=== PATIENT | female | born 1975 | race African-American/Black ===

== ENCOUNTER 2017-06-17 09:12 | Emergency (ER) | payer MEDICARE, MEDICAID ==
[~2017-06-17] VITALS: Ht 170.2 cm; Wt 63.5 kg
[~2017-06-17 09:12] MED LIST: AMITRIPTYLINE H25 MG ORAL; AUGMENTIN 875-1 EAC1 ORAL; BACTRIM DS TAB1 EAC1 ORAL; CIPROFLOXACIN500 M2 ORAL; COMPAZINE10 MG ORAL; DIFLUCAN100 MG ORAL; IBUPROFEN600 MG ORAL; KEFLEX500 MG ORAL; NORCO 5-325 TA1 EACH ORAL; NORCO 5-325 TA1 EACH PO; PERCOCET 5-3251 EACH PO; PHENAZOPYRIDIN100 MG ORAL; RELPAX40 MG PO; VICODIN 5-5001 EACH ORAL
[2017-06-17 09:21] VITALS: BP 106/65
--- NOTE | 2017-06-17 09:31 | Emergency Room Report ---
History of Present Illness General Chief Complaint: Upper Extremity Injury Source: Patient Present Illness HPI 41-year-old female, presenting with right wrist pain. Patient states that 2 days ago patient fell, does not know exactly how she fell. No head trauma or LOC. No complaining of right wrist pain worse with movement. No other complaints Allergies: Coded Allergies: Whole Milk (Verified Allergy, 10/23/12) Patient History Past Medical History: see triage record Past Surgical History: none Pertinent Family History: none Last Menstrual Period: Depo shot Reviewed Nursing Documentation: PMH: Agreed, PSxH: Agreed Nursing Documentation-PMH Past Medical History: No History, Except For Review of Systems All Other Systems: negative except mentioned in HPI Physical Exam Vital Signs Date Time Temp Pulse Resp B/P (MAP) Pulse Ox O2 Delivery O2 Flow Rate FiO2 06/17/17 09:21 98.2 79 16 106/65 97 Room Air Sp02 EP Interpretation: reviewed, normal General Appearance: normal inspection, well appearing, no apparent distress, alert, GCS 15, non-toxic Head: normocephalic, atraumatic Eyes: bilateral eye normal inspection, bilateral eye PERRL, bilateral eye EOMI ENT: normal ENT inspection, normal pharynx, normal voice, moist mucus membranes Neck: normal inspection, full range of motion, supple Respiratory: normal inspection, lungs clear, normal breath sounds, no respiratory distress, no retraction, no wheezing, speaking full sentences, chest symmetrical Cardiovascular #1: normal inspection, regular rate, rhythm, no edema, normal capillary refill Cardiovascular #2: 2+ radial (R), 2+ radial (L) Gastrointestinal: normal inspection, non tender, soft, non-distended, no guarding Musculoskeletal: other - Right wrist tenderness in the lateral/radial aspect, mild edema, limited range of motion secondary to pain, neurovascularly intact, no snuffbox tenderness Neurologic: normal inspection, alert, oriented x3, responsive, motor strength/ tone normal, sensory intact, normal gait, speech normal Psychiatric: normal inspection, judgement/insight normal, memory normal Skin: normal inspection, normal color, no rash, warm/dry, well hydrated, normal turgor Medical Decision Making Diagnostic Impression: Primary Impression: Wrist contusion ER Course 41-year-old female with right wrist pain DDX: Contusion vs. fracture Plan: Pain control with motrin XR ER course: Patient reports improvement of pain with motrin. XR reveals soft tissue swelling without fracture Disposition: Patient is to be discharged home with a prescription of motrin. Patient educated to rest, ice, and elevate extremity and to avoid vigorous activity. Strict precautions discussed with patient on when to return to the emergency room including increased redness or swelling joints, increased pain/swelling of extremity, fever or chills, which could indicate severe illness. Patient is to follow up with their primary care doctor within 5 days. Patient also instructed to follow up with an orthopedic doctor if continuing to have mild/moderate pain as he may need further outpatient imaging. Patient agrees with plan. Please note that this Emergency Department Report was dictated using [employer] technology software, occasionally this can lead to erroneous entry secondary to interpretation by the dictation equipment. Xray ordered: Right wrist 3 view Indication: Pain EP Interpretation: Yes Interpretation: No dislocation, no soft tissue swelling, no fractures Impression: No acute disease Electronically signed by Kulwant Nogueira MD Last Vital Signs Date Time Temp Pulse Resp B/P (MAP) Pulse Ox O2 Delivery O2 Flow Rate FiO2 06/17/17 09:21 98.2 79 16 106/65 97 Room Air Disposition: HOME, SELF-CARE Condition: Improved Patient Instructions: CONTUSION, Upper Extremity Kulwant Nogueira M.D. Jun 17, 2017 09:31
[2017-06-17] MEDS ORDERED: IBUPROFEN600 MG ORAL (09:34)
[2017-06-17] MEDS ORDERED: NORCO 10-325 T1 EACH ORAL (09:34)
--- NOTE | 2017-06-17 09:48 | Diagnostic Imaging Report ---
Indication: Pain Findings: 3 views of the right wrist were obtained. No acute fractures, malalignment, erosions or periostitis are identified. Soft tissues are unremarkable. Impression: No acute findings.
[2017-06-17 10:46] VITALS: BP 106/65
== END 2017-06-17 10:47 | disposition home or self-care (01) ==
LOC: EMR 09:48
DX: S60.211A Contusion of right wrist, initial encounter (principal); W19.XXXA Unspecified fall, initial encounter; Y92.9 Unspecified place or not applicable
CPT/HCPCS: 99283

== ENCOUNTER 2018-11-24 11:27 | Emergency (ER) | payer MEDICAID, MEDICARE ==
[~2018-11-24] VITALS: Ht 167.6 cm; Wt 63.5 kg
[~2018-11-24 11:27] MED LIST changes: +NORCO 10-325 T1 EACH ORAL
[2018-11-24 11:30] VITALS: BP 127/84
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
--- NOTE | 2018-11-24 12:18 | NUR ---
ED Nurse Note: X-ray tech at bedside.
--- NOTE | 2018-11-24 12:43 | NUR ---
ED Nurse Note: Steri-strips and finger splint applied to right index finger as ordered. Patient tolerated the procedure without difficulty.
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
--- NOTE | 2018-11-24 13:47 | Diagnostic Imaging Report ---
Indication: Right hand pain Findings: 3 views of the right hand were obtained. Normal bony mineralization and alignment are demonstrated. No acute fractures, erosions, or periosteal reaction are seen. Soft tissues are unremarkable. Impression: No acute findings.
== END 2018-11-24 12:45 | disposition home or self-care (01) ==
LOC: EMR 11:57
DX: S61.200A Unspecified open wound of right index finger without damage to nail, initial encounter (principal); W23.0XXA Caught, crushed, jammed, or pinched between moving objects, initial encounter; Y92.9 Unspecified place or not applicable
CPT/HCPCS: 29130; 99283

== ENCOUNTER 2020-01-17 09:50 | Emergency (ER) | payer MEDICAID ==
[~2020-01-17] VITALS: Ht 167.6 cm; Wt 64.4 kg
[2020-01-17 10:05] VITALS: BP 136/84
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
[2020-01-17] MEDS ORDERED: Tetanus/Diptheria/Pertussis IM ONE (10:15)
--- NOTE | 2020-01-17 10:50 | NUR ---
ED Nurse Note: patient was taken to CT via wheelchair
--- NOTE | 2020-01-17 11:00 | NUR ---
ED Nurse Note: patient is back from CT, NAD noted
[2020-01-17] MEDS ORDERED: IBUPROFEN600 M1 ORAL (11:58)
[2020-01-17] MEDS ORDERED: LIDOCAINE700 M1 TP (11:58)
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
[2020-01-17 12:13] VITALS: BP 136/84
--- NOTE | 2020-01-17 12:14 | NUR ---
ED Nurse Note: Pt cleared by health care Provider for discharge. DC instructions/prescription was given and explained to pt and verbalized understanding of teachings. All medical deviecs such as ID band removed. Pt is AAO x4, ambulatory and left with all personal belongings.
== END 2020-01-17 12:14 | disposition home or self-care (01) ==
LOC: EMR 10:16
DX: S20.219A Contusion of unspecified front wall of thorax, initial encounter (principal); E04.1 Nontoxic single thyroid nodule; K76.89 Other specified diseases of liver; S50.312A Abrasion of left elbow, initial encounter; Y09 Assault by unspecified means; N93.9 Abnormal uterine and vaginal bleeding, unspecified; N20.0 Calculus of kidney; Z23 Encounter for immunization
CPT/HCPCS: 71250; 90471; 90715; Z7502; 99284

== ENCOUNTER 2020-03-03 21:17 | Emergency (ER) | payer MEDICAID ==
[~2020-03-03] VITALS: Ht 167.6 cm; Wt 64.4 kg
[~2020-03-03 21:17] MED LIST changes: +IBUPROFEN600 M1 ORAL; +LIDOCAINE700 M1 TP
[2020-03-03 21:30] VITALS: BP 127/90
[2020-03-03 22:06] LABS: BASOPHILS % (AUTO) 1.5 % (0.0-2.0); EOSINOPHILS % (AUTO) 2.2 % (0.0-3.0); HEMATOCRIT 39.8 % (37.0-47.0); HEMOGLOBIN 12.4 G/DL (12.0-16.0); LYMPHOCYTES % (AUTO) 39.7 % (20.0-45.0); MEAN CORPUSCULAR VOLUME 85 FL (80-99); MONOCYTES % (AUTO) 6.9 % (1.0-10.0); NEUTROPHILS % (AUTO) 49.7 % (45.0-75.0); PLATELET COUNT 278 K/UL (150-450); RED BLOOD COUNT 4.66 M/UL (4.20-5.40); RED CELL DISTRIBUTION WIDTH 12.8 % (11.6-14.8); WHITE BLOOD COUNT 7.5 K/UL (4.8-10.8)
[2020-03-03 22:07] LABS: APPEARANCE,URINE SLIGHTLY CLOUDY; BILIRUBIN, URINE NEGATIVE (NEGATIVE); GLUCOSE, URINE (UA) NEGATIVE (NEGATIVE); KETONES,URINE NEGATIVE (NEGATIVE); LEUKOCYTE ESTERASE ,URINE NEGATIVE (NEGATIVE); NITRITE,URINE NEGATIVE (NEGATIVE); PH,URINE 6.5 (4.5-8.0); PROTEIN,URINE NEGATIVE (NEGATIVE); UROBILINOGEN,URINE 1 MG/DL (0.0-1.0)
--- NOTE | 2020-03-03 22:09 | Emergency Room Report ---
History of Present Illness General Chief Complaint: Female Urogenital Problems Source: Patient Present Illness HPI 44-year-old female presenting with multiple complaints. She has been taking the Depakote shot but has been concerned about heavy vaginal bleeding with clots x2 days. Cannot recall how many pads she has soaked in the past 24 hrs. She states that her mother has fibroids, however she has not been diagnosed. She is concerned that she may have been now too. Denies dysuria, melena, hematochezia, flank pain, abdominal pain, or pelvic pain. Also complains of right calf pain and swelling. Denies chest pain, shortness breath, hemoptysis, history of blood clots, nausea, vomiting, shortness of breath or other symptoms. The patient's symptoms were gradual onset, severity was moderate, duration since 2 days. Quality: aching Past medical history: anemia Past surgical history: Denies Smoking: Denies Alcohol use: Denies Drug use: Denies Review of systems: CONST: No fevers or chills, No night sweats PULMONARY: No productive cough, No shortness of breath CARDIAC: No chest pain, No palpitations GI: No vomiting, No diarrhea , No melena_or_BRBPR : No dysuria, No hematuria, No discharge NEURO: No new_focal_weakness_or_numbness, No confusion, No vision changes 14 point Review of Systems is otherwise negative except per HPI Physical Exam: GENERAL: Awake_alert_ nontoxic, no acute distress Spo2 96% on RA -normal EYES: Extraocular muscles are intact. Conjunctivae clear. Lids without swelling ENT: External nose and ear normal_in_appearance. Oropharynx clear. Head_atraumatic, Moist_oral_mucosa NECK: No JVD. No meningismus. No thyromegaly. Supple. Trachea midline RESP: Normal respiratory effort. Symmetric rise. No stridor. Clear_to_auscultation_No_rales_No_wheezes CARDIAC: Regular rate and regular rhytm. No_significant pedal edema. ABDOMEN: Soft. Nondistended. Nontender_No_rebound_or_guarding. no CVA tendern ess to palpation MSK: Normal muscle tone, without rigidity. Extremities without asymmetric deformity or swelling. R calf homans sign. SKIN: Warm and dry. No visible cyanosis or pallor NEUROLOGIC: Alert, oriented x3. Motor_and_sensation_grossly_intact. No truncal ataxia. Gait_normal Psych: Normal mood and affect, normal judgment and insight - COORDINATION OF CARE Case was discussed with: Patient , Patient's Family Any labs and imaging that were ordered were interpreted as part of the medical decision making: Medical Decision Making/Plan: Differential diagnosis includes DVT, lymphedema, renal failure, congestive heart failure, arthritis, venous stasis Distally the patient has capillary refill <2 seconds and strong pulses. There is no pallor or pain out of proportion to exam. There is mild swelling with negative Homans sign The patient has no significant DVT risk factors or known hypercoagulable disorder. No evidence of arterial occlusion. The associated joints have full range of motion without any significant pain or restriction in mobility. There is no crepitus or pain out of proportion to exam and the patient is afebrile and nontoxic. There is no overlying significant redness, induration, tenderness, pus, or evidence of drainable fluid collection. No evidence of septic arthritis, necrotizing fasciitis, or soft tissue infection such as abscess or cellulitis. No trauma, no injury , compartments are soft, the patient is able to bear weight and has no neurologic deficits. No evidence of fracture, dislocation or compartment syndrome at this time. Care to be signed out Dr Story pending pelvic US, RLE US, labs and urine Allergies: Coded Allergies: Whole Milk (Verified Allergy, 10/23/12) COVID-19 Screening Contact w/high risk pt: No Experienced COVID-19 symptoms?: No COVID-19 Testing performed PROJECT DESIGNER: No Patient History Last Menstrual Period: current Physical Exam Vital Signs Date Time Temp Pulse Resp B/P (MAP) Pulse Ox O2 Delivery O2 Flow Rate FiO2 03/03/20 21:20 98.2 90 18 127/90 (102) 96 Room Air Sp02 EP Interpretation: reviewed, normal Medical Decision Making Diagnostic Impression: Primary Impression: Vaginal bleeding Additional Impressions: Abdominal cramps Right calf pain Last Vital Signs Date Time Temp Pulse Resp B/P (MAP) Pulse Ox O2 Delivery O2 Flow Rate FiO2 03/03/20 21:30 98.2 90 18 127/90 96 Room Air Admit Decision Time: 22:00 Condition: Stable - Care signed out to Dr Stroy Referrals: NON PHYSICIAN (PCP) Aleah Dunne D.O. 4, 2020 22:09
[2020-03-03 22:10] LABS: COLOR,URINE YELLOW
[2020-03-03 22:12] LABS: INR 0.9 (0.9-1.1)
[2020-03-03 22:41] LABS: ALANINE AMINOTRANSFERASE 25 U/L (12-78); ALBUMIN 3.4 G/DL (3.4-5.0); ALKALINE PHOSPHATASE 59 U/L (46-116); ASPARTATE AMINO TRANSFERASE 14 U/L (15-37); BILIRUBIN,TOTAL 0.3 MG/DL (0.2-1.0); BLOOD UREA NITROGEN 12 mg/dL (7-18); CALCIUM 8.7 MG/DL (8.5-10.1); CARBON DIOXIDE 26 MMOL/L (21-32); CREATININE 0.9 MG/DL (0.55-1.30)
[2020-03-03 22:49] LABS: CHLORIDE 109 MMOL/L (98-107); POTASSIUM 3.6 MMOL/L (3.5-5.1); SODIUM 141 MMOL/L (136-145)
--- NOTE | 2020-03-03 23:45 | Diagnostic Imaging Report ---
EXAM: US Abdomen Complete CLINICAL HISTORY: ABD PAIN TECHNIQUE: Real-time ultrasound of the abdomen with image documentation. COMPARISON: No relevant prior studies available. FINDINGS: Liver: Unremarkable. No mass. No intrahepatic bile duct dilation. Gallbladder: The gallbladder is contracted. No radiopaque stones. Common bile duct: Unremarkable as visualized. No stones. No dilation. Pancreas: Unremarkable as visualized. Kidneys: The right kidney measures 11.8 cm. No nephrolithiasis, hydronephrosis, or suspicious lesion. Hypoechoic lobular lesion within the lower pole measuring 1.2 x 0.8 cm favored to represent cyst. The left kidney measures 8.5 cm in length. No nephrolithiasis, hydronephrosis, or suspicious mass. Spleen: Unremarkable. No splenomegaly. Aorta: Unremarkable. No aneurysm. Inferior vena cava: Unremarkable. Pleural space: Bilateral pleural effusions present. IMPRESSION: 1. No sonographically evident abnormality within the abdomen. 2. Bilateral pleural effusions present.
--- NOTE | 2020-03-04 00:29 | Diagnostic Imaging Report ---
EXAM: US Pelvis Transabdominal, Complete CLINICAL HISTORY: PAIN TECHNIQUE: Real-time complete transabdominal pelvic ultrasound with image documentation. COMPARISON: No relevant prior studies available. FINDINGS: Uterus/cervix: The uterus measures 8.6 x 6.1 x 4.8 cm. Endometrial complex measures 1.0 cm. Normal appearance of the uterus and endometrial complex. No myometrial mass. Right ovary: Right ovary measures 3.1 x 1.6 x 1.3 cm. No suspicious lesion. Blood flow present. Left ovary: The left ovary measures 3.7 x 1.9 x 1.9 cm. No suspicious lesion. Blood flow present. Free fluid: Trace physiologic free fluid within the cul-de-sac. IMPRESSION: 1. No acute abnormality. 2. Trace physiologic free fluid within the cul-de-sac.
--- NOTE | 2020-03-04 00:38 | Diagnostic Imaging Report ---
EXAM: US Duplex Bilateral Lower Extremities Veins CLINICAL HISTORY: DVT TECHNIQUE: Real-time duplex ultrasound scan of the bilateral lower extremity veins integrating B-mode two-dimensional vascular structure, Doppler spectral analysis, color flow Doppler imaging and compression. COMPARISON: No relevant prior studies available. FINDINGS: Right deep veins: Unremarkable. No DVT in the right common femoral, femoral, proximal deep femoral or popliteal veins. The veins demonstrate normal color flow, are normally compressible, with normal phasic flow and/or augmentation response. Right superficial veins: Unremarkable. Left deep veins: Unremarkable. No DVT in the left common femoral, femoral, proximal deep femoral or popliteal veins. The veins demonstrate normal color flow, are normally compressible, with normal phasic flow and/or augmentation response. Left superficial veins: Unremarkable. Soft tissues: No acute findings. IMPRESSION: No DVT within the bilateral lower extremity.
[2020-03-04 00:50] VITALS: BP 125/85
--- NOTE | 2020-03-04 01:49 | Emergency Room Report ---
Physical Exam Vital Signs Date Time Temp Pulse Resp B/P (MAP) Pulse Ox O2 Delivery O2 Flow Rate FiO2 03/03/20 21:20 98.2 90 18 127/90 (102) 96 Room Air Medical Decision Making Diagnostic Impression: Primary Impression: Vaginal bleeding Additional Impressions: Abdominal cramps Right calf pain ER Course Hospital Course 44 yo F presents with vaginal bleeding, R calf cramping. Patient initially seen and evaluated by Dr Dunne; please see her note for full history and physical Clinical course Labs - no leukocytosis, Hb/Hct stable, electrolytes ok, UA unremarkable pelvic US - no acute process venous duplex no evidence of DVT I discussed findings with patient. Reassurance given. Given copies of ultrasound reports. States she will follow-up with her [employer]. Will consider discontinuing her Depot injections. I feel this is a highly complex case requiring extensive working including EKG/Rhythm strip, Xray/CT/US, Blood/urine lab work, repeat exams while in ED, and administration of strong opiates/narcotics for pain control, admission to hospital or close patient follow up. Diagnosis - right calf pain, vaginal bleeding Stable and discharged to home. Followup with PMD. Return to ED if symptoms recur or worsen Laboratory Tests Test 03/03/20 21:46 White Blood Count 7.5 K/UL (4.8-10.8) Red Blood Count 4.66 M/UL (4.20-5.40) Hemoglobin 12.4 G/DL (12.0-16.0) Hematocrit 39.8 % (37.0-47.0) Mean Corpuscular Volume 85 FL (80-99) Mean Corpuscular Hemoglobin 26.5 PG (27.0-31.0) L Mean Corpuscular Hemoglobin Concent 31.1 G/DL (32.0-36.0) L Red Cell Distribution Width 12.8 % (11.6-14.8) Platelet Count 278 K/UL (150-450) Mean Platelet Volume 6.3 FL (6.5-10.1) L Neutrophils (%) (Auto) 49.7 % (45.0-75.0) Lymphocytes (%) (Auto) 39.7 % (20.0-45.0) Monocytes (%) (Auto) 6.9 % (1.0-10.0) Eosinophils (%) (Auto) 2.2 % (0.0-3.0) Basophils (%) (Auto) 1.5 % (0.0-2.0) Prothrombin Time 9.9 SEC (9.30-11.50) Prothromb Time International Ratio 0.9 (0.9-1.1) Activated Partial Thromboplast Time 24 SEC (23-33) Urine Color Yellow Urine Appearance Slightly cloudy Urine pH 6.5 (4.5-8.0) Urine Specific [place] 1.015 (1.005-1.035) Urine Protein Negative (NEGATIVE) Urine Glucose (UA) Negative (NEGATIVE) Urine Ketones Negative (NEGATIVE) Urine Blood 4+ (NEGATIVE) H Urine Nitrite Negative (NEGATIVE) Urine Bilirubin Negative (NEGATIVE) Urine Urobilinogen 1 MG/DL (0.0-1.0) H Urine Leukocyte Esterase Negative (NEGATIVE) Urine RBC 2-4 /HPF (0 - 2) H Urine WBC 0-2 /HPF (0 - 2) Urine Squamous Epithelial Cells Moderate /LPF (NONE/OCC) H Urine Bacteria Few /HPF (NONE) Urine Mucus Many /LPF (NONE/OCC) H Urine HCG, Qualitative Negative (NEGATIVE) Sodium Level 141 MMOL/L (136-145) Potassium Level 3.6 MMOL/L (3.5-5.1) Chloride Level 109 MMOL/L (98-107) H Carbon Dioxide Level 26 MMOL/L (21-32) Blood Urea Nitrogen 12 mg/dL (7-18) Creatinine 0.9 MG/DL (0.55-1.30) Estimat Glomerular Filtration Rate > 60 mL/min (>60) Glucose Level 99 MG/DL (74-106) Calcium Level 8.7 MG/DL (8.5-10.1) Total Bilirubin 0.3 MG/DL (0.2-1.0) Aspartate Amino Transf (AST/SGOT) 14 U/L (15-37) L Alanine Aminotransferase (ALT/SGPT) 25 U/L (12-78) Alkaline Phosphatase 59 U/L (46-116) Total Protein 6.7 G/DL (6.4-8.2) Albumin 3.4 G/DL (3.4-5.0) Globulin 3.3 g/dL Albumin/Globulin Ratio 1.0 (1.0-2.7) Lipase 172 U/L (73-393) Human Chorionic Gonadotropin, Quant 3 mIU/mL (1-6) CT/MRI/US Diagnostic Results CT/MRI/US Diagnostic Results #1: Imaging Test Ordered: ABD US Impression Procedure: US ABD Complete EXAM: US Abdomen Complete CLINICAL HISTORY: ABD PAIN TECHNIQUE: Real-time ultrasound of the abdomen with image documentation. COMPARISON: No relevant prior studies available. FINDINGS: Liver: Unremarkable. No mass. No intrahepatic bile duct dilation. Gallbladder: The gallbladder is contracted. No radiopaque stones. Common bile duct: Unremarkable as visualized. No stones. No dilation. Pancreas: Unremarkable as visualized. Kidneys: The right kidney measures 11.8 cm. No nephrolithiasis, hydronephrosis, or suspicious lesion. Hypoechoic lobular lesion within the lower pole measuring 1.2 x 0.8 cm favored to represent cyst. The left kidney measures 8.5 cm in length. No nephrolithiasis, hydronephrosis, or suspicious mass. Spleen: Unremarkable. No splenomegaly. Aorta: Unremarkable. No aneurysm. Inferior vena cava: Unremarkable. Pleural space: Bilateral pleural effusions present. IMPRESSION: 1. No sonographically evident abnormality within the abdomen. 2. Bilateral pleural effusions present. CT/MRI/US Diagnostic Results #2: Imaging Test Ordered: Pelvic US Impression Procedure: US Pelvic Transabdominal EXAM: US Pelvis Transabdominal, Complete CLINICAL HISTORY: PAIN TECHNIQUE: Real-time complete transabdominal pelvic ultrasound with image documentation. COMPARISON: No relevant prior studies available. FINDINGS: Uterus/cervix: The uterus measures 8.6 x 6.1 x 4.8 cm. Endometrial complex measures 1.0 cm. Normal appearance of the uterus and endometrial complex. No myometrial mass. Right ovary: Right ovary measures 3.1 x 1.6 x 1.3 cm. No suspicious lesion. Blood flow present. Left ovary: The left ovary measures 3.7 x 1.9 x 1.9 cm. No suspicious lesion. Blood flow present. Free fluid: Trace physiologic free fluid within the cul-de-sac. IMPRESSION: 1. No acute abnormality. 2. Trace physiologic free fluid within the cul-de-sac. CT/MRI/US Diagnostic Results #3: Imaging Test Ordered: Venous duplex Impression Procedure: Venous Duplex Scan Jose Leg EXAM: US Duplex Bilateral Lower Extremities Veins CLINICAL HISTORY: DVT TECHNIQUE: Real-time duplex ultrasound scan of the bilateral lower extremity veins integrating B-mode two-dimensional vascular structure, Doppler spectral analysis, color flow Doppler imaging and compression. COMPARISON: No relevant prior studies available. FINDINGS: Right deep veins: Unremarkable. No DVT in the right common femoral, femoral, proximal deep femoral or popliteal veins. The veins demonstrate normal color flow, are normally compressible, with normal phasic flow and/or augmentation response. Right superficial veins: Unremarkable. Left deep veins: Unremarkable. No DVT in the left common femoral, femoral, proximal deep femoral or popliteal veins. The veins demonstrate normal color flow, are normally compressible, with normal phasic flow and/or augmentation response. Left superficial veins: Unremarkable. Soft tissues: No acute findings. IMPRESSION: No DVT within the bilateral lower extremity. Last Vital Signs Date Time Temp Pulse Resp B/P (MAP) Pulse Ox O2 Delivery O2 Flow Rate FiO2 03/04/20 00:50 98.6 85 18 125/85 98 Room Air Status: improved Disposition: HOME, SELF-CARE Condition: Stable Referrals: NON PHYSICIAN (PCP) Patient Instructions: Abnormal Uterine Bleeding, [id number] Main Story MD Mar 04, 2020 01:49
== END 2020-03-04 00:50 | disposition home or self-care (01) ==
LOC: EMR 21:46
DX: N93.9 Abnormal uterine and vaginal bleeding, unspecified (principal); R10.9 Unspecified abdominal pain; M79.661 Pain in right lower leg; J90 Pleural effusion, not elsewhere classified
CPT/HCPCS: 36415; 76700; 76856; 80053; 81003; 81025; 83690; 84702; 85025; 85610; 85730; 86850; 86900; 86901; 93970; Z7502; 99284

== ENCOUNTER 2020-03-18 19:36 | Emergency (ER) | payer MEDICAID ==
[~2020-03-18] VITALS: Ht 167.6 cm; Wt 64.4 kg
[2020-03-18] MEDS ORDERED: Omnipaque-300 100ml vial INJ PRN (20:45)
--- NOTE | 2020-03-18 20:51 | Emergency Room Report ---
History of Present Illness General Chief Complaint: Abdominal Pain Present Illness HPI 44-year-old female here with severe right lower quadrant abdominal pain. Patient was here Allergies: Coded Allergies: Whole Milk (Verified Allergy, 10/23/12) COVID-19 Screening Contact w/high risk pt: No Experienced COVID-19 symptoms?: No COVID-19 Testing performed FREIGHT RECEIVER: No Physical Exam Vital Signs Date Time Temp Pulse Resp B/P (MAP) Pulse Ox O2 Delivery O2 Flow Rate FiO2 03/18/20 19:44 98.2 82 18 131/92 (105) 99 Room Air Medical Decision Making ER Course Ct abdpel: IMPRESSION: 1. No acute abnormality definitively identified to account for patient presentation. 2. Prominent colonic stool burden could be incidental or could be a cause for pain. 3. Liquid small bowel contents could be incidental or could represent an infectious or inflammatory enteritis in the proper context. Laboratory Tests Test 03/18/20 20:42 03/18/20 21:00 Urine Color Yellow Urine Appearance Clear Urine pH 7 (4.5-8.0) Urine Specific [place] 1.010 (1.005-1.035) Urine Protein 1+ (NEGATIVE) H Urine Glucose (UA) Negative (NEGATIVE) Urine Ketones 2+ (NEGATIVE) H Urine Blood 3+ (NEGATIVE) H Urine Nitrite Negative (NEGATIVE) Urine Bilirubin Negative (NEGATIVE) Urine Urobilinogen 4 MG/DL (0.0-1.0) H Urine Leukocyte Esterase Negative (NEGATIVE) Urine RBC 10-15 /HPF (0 - 2) H Urine WBC 0-2 /HPF (0 - 2) Urine Squamous Epithelial Cells Few /LPF (NONE/OCC) Urine Bacteria Few /HPF (NONE) Urine Mucus Many /LPF (NONE/OCC) H Urine HCG, Qualitative Negative (NEGATIVE) White Blood Count 11.9 K/UL (4.8-10.8) H Red Blood Count 4.69 M/UL (4.20-5.40) Hemoglobin 12.5 G/DL (12.0-16.0) Hematocrit 39.8 % (37.0-47.0) Mean Corpuscular Volume 85 FL (80-99) Mean Corpuscular Hemoglobin 26.6 PG (27.0-31.0) L Mean Corpuscular Hemoglobin Concent 31.4 G/DL (32.0-36.0) L Red Cell Distribution Width 12.7 % (11.6-14.8) Platelet Count 292 K/UL (150-450) Mean Platelet Volume 6.5 FL (6.5-10.1) Neutrophils (%) (Auto) 84.5 % (45.0-75.0) H Lymphocytes (%) (Auto) 11.4 % (20.0-45.0) L Monocytes (%) (Auto) 3.5 % (1.0-10.0) Eosinophils (%) (Auto) 0.1 % (0.0-3.0) Basophils (%) (Auto) 0.5 % (0.0-2.0) Sodium Level 141 MMOL/L (136-145) Potassium Level 3.5 MMOL/L (3.5-5.1) Chloride Level 106 MMOL/L (98-107) Carbon Dioxide Level 25 MMOL/L (21-32) Anion Gap 10 mmol/L (5-15) Blood Urea Nitrogen 10 mg/dL (7-18) Creatinine 1.1 MG/DL (0.55-1.30) Estimated Glomerular Filtration Rate > 60 mL/min (>60) Glucose Level 125 MG/DL (74-106) H Calcium Level 8.6 MG/DL (8.5-10.1) Total Bilirubin 0.4 MG/DL (0.2-1.0) Aspartate Amino Transferase (AST) 16 U/L (15-37) Alanine Aminotransferase (ALT) 19 U/L (12-78) Alkaline Phosphatase 59 U/L (46-116) Total Protein 6.6 G/DL (6.4-8.2) Albumin 3.8 G/DL (3.4-5.0) Globulin 2.8 g/dL Albumin/Globulin Ratio 1.4 (1.0-2.7) Lipase 123 U/L (73-393) 44-year-old female here with intermittent severe right lower quadrant abdominal pain. Patient was hemodynamically stable in the emergency department. She was complaining of severe pain and required multiple doses of IV pain medication including morphine and Dilaudid with only some resolution of her pain. CT abdomen pelvis only showed evidence of constipation and possible enteritis. Patient will undergo emergent ultrasound to rule out ovarian pathology. Signed to oncoming physician. ddx: Hernia, bladder or kidney stones, diverticulitis, enteritis, appendicitis, genital pathology Last Vital Signs Date Time Temp Pulse Resp B/P (MAP) Pulse Ox O2 Delivery O2 Flow Rate FiO2 03/18/20 19:44 98.2 82 18 131/92 (105) 99 Room Air Storm Martinez M.D. Mar 18, 2020 20:51
[2020-03-18] MEDS ORDERED: Morphine Sulfate 4mg/ml Inj (IV USE ONLY) ONE (21:05)
[2020-03-18 21:13] LABS: BASOPHILS % (AUTO) 0.5 % (0.0-2.0); EOSINOPHILS % (AUTO) 0.1 % (0.0-3.0); HEMATOCRIT 39.8 % (37.0-47.0); HEMOGLOBIN 12.5 G/DL (12.0-16.0); LYMPHOCYTES % (AUTO) 11.4 % (20.0-45.0); MEAN CORPUSCULAR VOLUME 85 FL (80-99); MONOCYTES % (AUTO) 3.5 % (1.0-10.0); NEUTROPHILS % (AUTO) 84.5 % (45.0-75.0); PLATELET COUNT 292 K/UL (150-450); RED BLOOD COUNT 4.69 M/UL (4.20-5.40); RED CELL DISTRIBUTION WIDTH 12.7 % (11.6-14.8); WHITE BLOOD COUNT 11.9 K/UL (4.8-10.8)
[2020-03-18 21:15] LABS: APPEARANCE,URINE CLEAR; BILIRUBIN, URINE NEGATIVE (NEGATIVE); GLUCOSE, URINE (UA) NEGATIVE (NEGATIVE); KETONES,URINE 2+ (NEGATIVE); LEUKOCYTE ESTERASE ,URINE NEGATIVE (NEGATIVE); NITRITE,URINE NEGATIVE (NEGATIVE); PH,URINE 7 (4.5-8.0); PROTEIN,URINE 1+ (NEGATIVE); UROBILINOGEN,URINE 4 MG/DL (0.0-1.0)
[2020-03-18] MEDS ORDERED: Morphine Sulfate 4mg/ml Inj (IV USE ONLY) IVP ONE ×2 (21:15→22:00)
[2020-03-18 21:17] LABS: COLOR,URINE YELLOW
[2020-03-18 21:22] VITALS: BP 131/92
[2020-03-18 21:24] LABS: ANION GAP 10 mmol/L (5-15); BLOOD UREA NITROGEN 10 mg/dL (7-18); CALCIUM 8.6 MG/DL (8.5-10.1); CARBON DIOXIDE 25 MMOL/L (21-32); CHLORIDE 106 MMOL/L (98-107); CREATININE 1.1 MG/DL (0.55-1.30); POTASSIUM 3.5 MMOL/L (3.5-5.1); SODIUM 141 MMOL/L (136-145)
[2020-03-18 21:28] LABS: ALANINE AMINOTRANSFERASE 19 U/L (12-78); ALBUMIN 3.8 G/DL (3.4-5.0); ALBUMIN/GLOBULIN RATIO 1.4 (1.0-2.7); ALKALINE PHOSPHATASE 59 U/L (46-116); ASPARTATE AMINO TRANSFERASE 16 U/L (15-37); BILIRUBIN,TOTAL 0.4 MG/DL (0.2-1.0)
[2020-03-18] MEDS ORDERED: HYDROmorphone 1mg/ml Carpuject IVP ONE ×2 (22:30→23:15)
--- NOTE | 2020-03-18 22:43 | Diagnostic Imaging Report ---
EXAM: CT Abdomen and Pelvis With Intravenous Contrast CLINICAL HISTORY: PAIN TECHNIQUE: Axial computed tomography images of the abdomen and pelvis with intravenous contrast. CTDI is 4.6 mGy and DLP is 241.4 mGy-cm. One or more of the following dose reduction techniques were used: automated exposure control, adjustment of the mA and/or kV according to patient size, use of iterative reconstruction technique. Coronal and sagittal reformatted images were created and reviewed. COMPARISON: Ultrasound 03/03/2020 FINDINGS: Lung bases: Unremarkable. No mass. No consolidation. ABDOMEN: Liver: Benign left hepatic lobe 1.3 cm cyst requires no additional follow-up.Otherwise unremarkable liver. Gallbladder and bile ducts: Unremarkable. No calcified stones. No ductal dilation. Pancreas: Unremarkable. No mass. No ductal dilation. Spleen: Unremarkable. No splenomegaly. Adrenals: Unremarkable. No mass. Kidneys and ureters: Bilateral benign renal cysts cm hypodensities likely representing benign cyst requiring no additional follow-up. No hydronephrosis. Stomach and bowel: Prominent colonic stool burden could be incidental or could be a cause for pain. Liquid small bowel contents could be incidental or could represent an infectious or inflammatory enteritis in the proper context. No obstruction. PELVIS: Appendix: No findings to suggest acute appendicitis. Bladder: Unremarkable. No mass. Reproductive: Unremarkable as visualized. ABDOMEN and PELVIS: Intraperitoneal space: Unremarkable. No free air. No significant fluid collection. Bones/joints: No acute fracture. No dislocation. Soft tissues: Unremarkable. Vasculature: Unremarkable. No abdominal aortic aneurysm. Lymph nodes: Unremarkable. No enlarged lymph nodes. IMPRESSION: 1. No acute abnormality definitively identified to account for patient presentation. 2. Prominent colonic stool burden could be incidental or could be a cause for pain. 3. Liquid small bowel contents could be incidental or could represent an infectious or inflammatory enteritis in the proper context.
[2020-03-19] MEDS ORDERED: HYDROCODON-ACE1 EA15 ORAL (00:55)
[2020-03-19] MEDS ORDERED: IBUPROFEN600 M1 ORAL (00:55)
[2020-03-19] MEDS ORDERED: Ketorolac 30mg Inj IV ONE (01:00)
[2020-03-19 01:15] VITALS: BP 131/92
--- NOTE | 2020-03-19 08:26 | Diagnostic Imaging Report ---
EXAM: US Pelvis Transabdominal and Transvaginal, Complete and US Duplex Arterial/Venous of the Pelvis, Complete CLINICAL HISTORY: PAIN TECHNIQUE: Real-time complete transabdominal and transvaginal pelvic ultrasound with image documentation. Transvaginal imaging was used for better evaluation of the endometrium and adnexa. Real-time duplex ultrasound scan of the arterial and venous flow of the pelvis with color Doppler flow and spectral waveform analysis. COMPARISON: No relevant prior studies available. FINDINGS: Uterus/cervix: Unremarkable measuring 9.8 cm.. Normal endometrial stripe thickness measuring 6 mm. No myometrial mass. Right ovary: Unremarkable measuring 0.9 x 1.6 x 3.7 cm. Normal arterial and venous blood flow. No torsion. Left ovary: Unremarkable measuring 2.8 x 1.3 x 2.8 cm. Normal arterial and venous blood flow. No torsion. Free fluid: No free fluid. Bladder: Unremarkable as visualized. Wall is normal thickness for degree of distention. IMPRESSION: Normal pelvic ultrasound with normal ovarian blood flow.
== END 2020-03-19 02:39 | disposition home or self-care (01) ==
LOC: EMR 20:05
DX: R10.31 Right lower quadrant pain (principal); R10.2 Pelvic and perineal pain; K59.00 Constipation, unspecified; N28.1 Cyst of kidney, acquired; K76.89 Other specified diseases of liver
CPT/HCPCS: 36415; 74177; 76830; 76856; 80053; 81003; 81025; 83690; 85025; 96374; 96375; 96376; J1170; J1885; J2270; Q9965; Z7502; 99284